=== PATIENT | male | born 1965 | race Caucasian/White ===

== ENCOUNTER 2017-01-08 12:40 | Emergency (ER) | payer MEDICARE ==
[2017-01-08 13:45] LABS: BASOPHILS 0.2 % (0.0-2.0); EOSINOPHILS 0 % (0-7); HEMATOCRIT 42.6 % (42.0-54.0); HEMOGLOBIN 13.7 g/dL (13.5-17.5); IMMATURE GRANULOCYTES 0.2 % (0-5); LYMPHOCYTES 15.5 % (15-50); MCH 28.7 pg (26.0-34.0); MCHC 32.2 g/dL (31.0-37.0); MCV 89.1 fL (80.0-100.0); MEAN PLATELET VOLUME 10.2 fL (7.4-10.4); NEUTROPHILS 75.1 % (40-80); PLATELET COUNT 177 10x3/uL (130-400); RBC 4.78 10x6/uL (4.20-6.10); RDW 13.3 % (11.5-14.5); WBC 4.3 10x3/uL (4.8-10.8)
[2017-01-08 14:13] LABS: ALBUMIN 3.8 g/dL (3.4-5.0); ALKALINE PHOSPHATASE 117 U/L (46-116); ALT (SGPT) 15 U/L (10-68); BILIRUBIN - TOTAL 0.26 mg/dL (0.2-1.3); CALC OSMOLALITY 278 mosm/kg (275-300); CALCIUM 9.2 mg/dL (8.5-10.1); CARBON DIOXIDE 31.2 mmol/L (21.0-32.0); CHLORIDE - SERUM 103 mmol/L (98-107); CREATININE - SERUM 0.8 mg/dL (0.6-1.3); GLUCOSE 77 mg/dL (74-106); POTASSIUM - SERUM 4.5 mmol/L (3.5-5.1); PROTEIN - SERUM 7.2 g/dL (6.4-8.2); SODIUM 141 mmol/L (136-145); UREA NITROGEN 11 mg/dL (7-18); eGFR NON AFRICAN AMERICAN > 90 mL/min (90-120)
[2017-01-08 14:17] LABS: TROPONIN-I 0.046 ng/mL (0.000-0.060)
== END 2017-01-08 15:30 | disposition home or self-care (01) ==
LOC: D.ER 12:40
PROVIDERS: Emergency Medicine
DX: I10 Essential (primary) hypertension (principal); G40.909 Epilepsy, unspecified, not intractable, without status epilepticus

== ENCOUNTER 2017-12-05 21:50 | Emergency (ER) | payer MEDICARE | END 2017-12-05 23:05 | disposition home or self-care (01) | LOC: D.ER 21:50 | DX: R06.00 Dyspnea, unspecified (principal); I10 Essential (primary) hypertension; G40.909 Epilepsy, unspecified, not intractable, without status epilepticus ==